=== PATIENT | female | born 1990 | race Caucasian/White ===

== ENCOUNTER 2017-04-18 13:32 | Emergency (ER) | payer OTHER ==
[~2017-04-18] VITALS: Ht 170.2 cm; Wt 140.6 kg
[~2017-04-18 13:32] MED LIST: FLEXERIL10 MG PO; MOTRIN800 MG PO
--- NOTE | 2017-04-18 16:45 | ED GENERAL ADULT ---
History of Present Illness General Chief Complaint: Nausea, Vomiting, Diarrhea Stated Complaint: SIB OBGYN, 35 WEEK PREG, +NVD Source: patient Exam Limitations: no limitations Vital Signs & Intake/Output Vital Signs & Intake/Output Vital Signs Date Time Temp Pulse Resp B/P B/P Pulse O2 O2 Flow FiO2 Mean Ox Delivery Rate 04/18 2123 98.3 04/18 2113 98.3 112 19 128/64 99 Room Air 04/18 2028 100.1 04/18 185 97.5 108 19 122/56 99 Room Air 04/18 1656 98.5 126 19 114/68 97 Room Air 04/18 1422 97.3 121 15 112/74 96 Room Air Room Air Triage Note: PT TO ED FOR C/C OF ABD CRAMPING LOCALIZED IN THE RUQ SINCE 0900 THIS MORNING. SPOKE WITH HER OBGYN (JOHN) AND ADVISED TO COME TO ED. PT IS CURRENTLY 35 WEEKS . ALSO HAS VOMITED >10 TIMES TODAY AND DIARRHEA. DENIES VAGINAL DISCHARGE OR SPOTTING. REPORTS FEELING BABY MOVE NORMAL. . SPOKE WITH [facility], PT TO BE EVAL'D IN ED. Triage Nurses Notes Reviewed? yes Onset: Abrupt Duration: day(s): Timing: recent history : Yes Patient currently breastfeeds: No HPI: 04/18/17 26-year-old female is currently 35 weeks . The patient was instructed by her [facility] doctor to go to [place]. She is been having ongoing vomiting and diarrhea. Her and son have had similar symptoms. She also has some epigastric abdominal pain. She denies fever. She also has runny nose and nasal discharge. The onset of the symptoms was abrupt, the duration has been approximately 48 hours, the severity is significant as her symptoms required her to come to the emergency department for care. She has no other significant past medical history. (Zac Conn DO) Allergies Uncoded Allergies: NESQUICK POWDER (RASH AROUND LIPS 04/18/17) Reconcile Medications Albuterol Sulfate (Proair Hfa) 90 MCG HFA.AER.AD 2 PUF INH AD PRN ASTHMA ( Reported) Ondansetron (Zofran Odt) 4 MG TAB.RAPDIS 1 TAB SL TID PRN nausea Pnv#67/Iron Ps/FA Cmb#1/Dha (Vitafol Ultra Softgel) 29 MG IRON-1 MG-200 MG CAPSULE 1 CAP PO DAILY (Reported) (German Roman MD) Past History Travel History Traveled to [place] past 21 day No Medical History Any Pertinent Medical History? see below for history Neurological: NONE EENT: NONE Cardiovascular: NONE Respiratory: NONE Gastrointestinal: NONE Hepatic: NONE Renal: NONE Musculoskeletal: NONE Psychiatric: NONE Endocrine: NONE Blood Disorders: NONE Cancer(s): NONE GAME MASTER/Reproductive: NONE Pneumonia Vaccine: 01/09/13 Influenza Vaccine: 01/09/13 Surgical History Surgical History: unobtainable Psychosocial History What is your primary language Swedish Tobacco Use: Quit >30 days ago ETOH Use: denies use Illicit Drug Use: denies illicit drug use Family History Hx Contributory? No (Zac Conn DO) Review of Systems Review of Systems Constitutional: Denies: fever. EENTM: Denies: visual changes. Respiratory: Denies: short of breath. Cardiovascular: Denies: chest pain. GI: Reports: abdominal pain. Genitourinary: Reports: no symptoms. Musculoskeletal: Reports: no symptoms. Skin: Reports: no symptoms. Neurological/Psychological: Reports: no symptoms. Hematologic/Endocrine: Reports: no symptoms. Immunologic/Allergic: Reports: no symptoms. (Zac Conn DO) Physical Exam Physical Exam General Appearance: well developed/nourished, alert, awake, anxious, moderate distress Head: atraumatic, normal appearance Eyes: Bilateral: normal appearance, PERRL, EOMI. Ears, Nose, Throat: normal pharynx, normal ENT inspection, hearing grossly normal Neck: normal inspection, supple Respiratory: normal breath sounds, chest non-tender, no respiratory distress Cardiovascular: regular rate/rhythm Peripheral Pulses: 4+ radial (R), 4+ radial (L) Gastrointestinal: soft, non-tender, gravid uterus Back: normal inspection Extremities: normal range of motion, no edema Neurologic/Psych: no motor/sensory deficits, awake, alert, oriented x 3 Skin: intact, normal color, warm/dry Core Measures ACS in differential dx? Yes CVA/TIA Diagnosis: No Sepsis Present: No Sepsis Focused Exam Completed? No (Zac Conn DO) Progress Differential Diagnoses I considered the following diagnoses in my evaluation of the patient: [Viral syndrome, cholecystitis, preeclampsia, infectious diarrhea, dehydration] Plan of Care: Orders Procedure Date/time Status Add-on Test (ER Only) 04/18 164 Active RAPID VIRAL INFLUENZA A 04/18 164 Complete LIPASE 04/18 164 Complete COMPREHENSIVE METABOLIC PANEL 04/18 164 Complete CBC WITHOUT DIFFERENTIAL 04/18 1646 Complete CULTURE,URINE 04/18 1415 Active URINALYSIS 04/18 1415 Complete Laboratory Tests 04/18/172004: Urine Color YEL, Urine Clarity CLEAR, Urine pH 6.0, Ur Specific [place] >= 1.030 , Urine Protein NEG, Urine Ketones >=80, Urine Nitrite NEG, Urine Bilirubin NEG, Urine Urobilinogen 0.2, Ur Leukocyte Esterase NEG, Ur Microscopic EXAM NOT REQUIRED, Urine Hemoglobin NEG, Urine Glucose NEG 04/18/17 1813: Anion Gap 14, Estimated GFR > 60, BUN/Creatinine Ratio 14.3, Glucose 79, Calcium 9.0, Total Bilirubin 0.4, AST 21, ALT 31, Alkaline Phosphatase 155 H, Total Protein 6.6, Albumin 3.6, Globulin 3.0, Albumin/Globulin Ratio 1.2, Lipase 92 04/18/17 1723: CBC w Diff NO MAN DIFF REQ, RBC 5.18, MCV 83.9, MCH 27.4, MCHC 32.7 L, RDW 14.1 , MPV 8.3, Gran % 95.0 H, Lymphocytes % 3.3 L, Monocytes % 1.5 L, Eosinophils % 0.2, Basophils % 0, Absolute Granulocytes 11.8 H, Absolute Lymphocytes 0.4 L , Absolute Monocytes 0.2, Absolute Eosinophils 0, Absolute Basophils 0 Microbiology 04/18 2004 URINE ROUT: Urine Culture - RECD 04/18 173 NASOPHARYN: Influenza Virus A & B Rapid Smear - COMP Initial ED EKG: none (Zac Conn DO) Comments: Still feel sick. Additional IVF and tylenol ordered. (German Roman MD) Departure Departure Condition: Stable Clinical Impression Primary Impression: Viral syndrome Secondary Impressions: Referrals: Delaney Reyes MD (PCP/Family) Departure Forms: Customer Survey General Discharge Information Comments PATIENT: CAMILA LUBIN PRESENT AGE: 26 PATIENT ACCOUNT NO: [id number] : 90 LOCATION: ER ORDERING PHYSICIAN: Zac Conn DO SERVICE DATE: 04/18/17 EXAM TYPE: US - US- VIABILITY EXAMINATION: US , VIABILITY CLINICAL INFORMATION: Nausea and vomiting. . COMPARISON: None TECHNIQUE: Transabdominal imaging was performed. FINDINGS: There is a single living intrauterine gestation. The placenta is anterior. There is no evidence for retroplacental hemorrhage. The fetus is in oblique lie and vertex position. A heart rate is identified at 174 bpm. The amniotic fluid index is 16.4 cm. The abdominal circumference is 27.8 cm corresponding to 31 weeks 6 days. The head circumference is 29.9 cm corresponding to 33 weeks 1 day. The femur length is 7.0 cm corresponding to 35 weeks 6 days. The average age by ultrasound is 33 weeks 5 days. The age by dates is 34 weeks 5 days. CAMERON by dates is 05/25/2017. IMPRESSION: Single living intrauterine gestation as stated above. No retroplacental hemorrhage demonstrable. DICTATED BY: Augusto Pinedo MD DATE/TIME DICTATED:04/18/171837 GENERAL ADJUSTER:HARSH DATE/TIME TRANSCRIBED:04/18/171837 CONFIDENTIAL, DO NOT COPY WITHOUT APPROPRIATE AUTHORIZATION. <Electronically signed in Other Vendor System> SIGNED BY: Augusto Pinedo MD 04/18/171847 The patient was discussed with her [employer] physician Dr. Magdaleno who agreed with the plan of care. Labs and IV fluids. IV Zofran. She will be reevaluated to see if she tolerates by mouth. Nonstress test to be obtained. The patient was signed out to Dr. Roman at 7 PM. (Zac Conn DO) Departure Time of Disposition: 2245 Disposition: HOME OR SELF CARE Additional Instructions: Go to the [facility] for monitoring Prescriptions: Current Visit Scripts Ondansetron (Zofran Odt) 1 TAB SL TID PRN nausea #10 TAB (Jessie ARCHER,German) Critical Care Note Critical Care Note Critical Care Time: 30-74 min (Zac Conn DO)
[2017-04-18 17:38] LABS: ABSOLUTE BASOPHIL COUNT 0 /CUMM (0.0-0.2); ABSOLUTE EOSINOPHIL COUNT 0 /CUMM (0.0-0.7); ABSOLUTE GRANULOCYTE CT 11.8 /CUMM (1.4-6.5); ABSOLUTE LYMPH COUNT 0.4 /CUMM (1.2-3.4); ABSOLUTE MONOCYTE COUNT 0.2 /CUMM (0.10-0.60); BASOPHIL % 0 % (0.0-2.0); EOSINOPHIL % 0.2 % (0-5); HEMATOCRIT 43.4 % (37-47); MEAN CORPUSCULAR HGB 27.4 PG (27.0-31.0); MEAN CORPUSCULAR HGB CONC 32.7 G/DL (33.0-37.0); MEAN CORPUSCULAR VOLUME 83.9 FL (81.0-99.0); MEAN PLATELET VOLUME 8.3 FL (7.4-10.4); PLATELET COUNT 270 /CUMM (130-400); RBC DISTRIBUTION WIDTH 14.1 % (11.5-14.5); RED BLOOD CELL CT 5.18 /CUMM (4.20-5.40); WHITE BLOOD CELL COUNT 12.5 /CUMM (4.8-10.8)
--- NOTE | 2017-04-18 18:48 | ULTRASOUND REPORT ---
EXAMINATION: US , VIABILITY CLINICAL INFORMATION: Nausea and vomiting. . COMPARISON: None TECHNIQUE: Transabdominal imaging was performed. FINDINGS: There is a single living intrauterine gestation. The placenta is anterior. There is no evidence for retroplacental hemorrhage. The fetus is in oblique lie and vertex position. A heart rate is identified at 174 bpm. The amniotic fluid index is 16.4 cm. The abdominal circumference is 27.8 cm corresponding to 31 weeks 6 days. The head circumference is 29.9 cm corresponding to 33 weeks 1 day. The femur length is 7.0 cm corresponding to 35 weeks 6 days. The average age by ultrasound is 33 weeks 5 days. The age by dates is 34 weeks 5 days. CAMERON by dates is 05/25/2017. IMPRESSION: Single living intrauterine gestation as stated above. No retroplacental hemorrhage demonstrable.
[2017-04-18] MEDS ORDERED: PRENATAL TABLE1 EAC2 PO (20:58)
[2017-04-18] MEDS ORDERED: PROAIR HFA8.5 GM INH (20:58)
[2017-04-18] MEDS ORDERED: VITAFOL ULTRA1 EACH PO (20:58)
[2017-04-18 22:35] VITALS: BP 124/74
[2017-04-18] MEDS ORDERED: ZOFRAN ODT4 M1 SL (22:47)
== END 2017-04-18 23:05 ==
LOC: ERH 13:32
PROVIDERS: Emergency Medicine
DX: O99.89 Other specified diseases and conditions complicating pregnancy, childbirth and the puerperium (principal); B34.9 Viral infection, unspecified; Z3A.35 35 weeks gestation of pregnancy
CPT/HCPCS: 81003; 87086; 87804; 87804-59; 96365; 96375; J0131; J2405